=== PATIENT | female | born 1940 | race Hispanic/Latino ===

== ENCOUNTER → 2018-05-18 | Outpatient (CLI) | payer OTHER ==
[~2018-05-18] MED LIST: AEC81 PO; ATOR40TA71 PO; CLOP75TA14 PO; CYAN10009 PO; CYAN100099 PO; LOSA50TA2 PO; LOSA50TA25 PO; METF-444 PO; METF-446 PO; METO25TA6 PO; METO50 PO; METO50TA18 PO; RANO500T2 PO; RANO500T3 PO; SOLI10TA PO
== END | disposition home or self-care (01) ==
LOC: SHCH 13:34
PROVIDERS: ATTEND Internal Medicine Cardiovascular Disease
DX: I25.10 Atherosclerotic heart disease of native coronary artery without angina pectoris (principal)
CPT/HCPCS: 93306

== ENCOUNTER → 2018-05-31 | Outpatient (CLI) | payer OTHER ==
[~2018-05-31] VITALS: Ht 152.4 cm; Wt 63.5 kg
[~2018-05-31] MED LIST changes: +REGADENOSON 0.4 MG/5 ML PF SYG IVP SCH
== END | disposition home or self-care (01) ==
LOC: SHCH 09:40
PROVIDERS: ATTEND Internal Medicine Cardiovascular Disease
DX: I25.10 Atherosclerotic heart disease of native coronary artery without angina pectoris (principal); I10 Essential (primary) hypertension
CPT/HCPCS: 78452; 93017; 96374; A9500 ×2; J2785

== ENCOUNTER → 2018-07-09 | Outpatient (CLI) | payer OTHER ==
[~2018-07-09] VITALS: Ht 152.4 cm; Wt 64.7 kg
[~2018-07-09] MED LIST changes: +CYAN200018 PO; +LEVE750T10 PO; -LOSA50TA25 PO; +LOSA50TA64 PO; -REGADENOSON 0.4 MG/5 ML PF SYG IVP SCH; +ROSU20TA30 PO; +SODIUM CHLORIDE 0.9% 500ML 500 ML IV SCH
[2018-07-09 08:55] VITALS: BP 180/80
[2018-07-09 09:26] LABS: EOSINOPHILS % (AUTO) 2.6 % (0.0-8.0); LYMPHOCYTES % (AUTO) 29.2 % (21.0-51.0); MEAN CORPUSCULAR HEMOGLOBIN 30.1 pg (27.0-33.0); MEAN CORPUSCULAR HGB CONC 31.8 g/dL (32.0-36.0); MEAN CORPUSCULAR VOLUME 94.8 fL (79-99); NEUTROPHILS % (AUTO) 55.2 % (40.0-77.0); NUCLEATED RED BLOOD CELLS 0.1 % (0.0-0.19); PLATELET COUNT (AUTO) 124 K/uL (130-400); RED BLOOD CELL COUNT(AUTO) 3.59 MIL/uL (4.00-5.50); RED CELL DISTRIBUTION WIDTH 15.3 % (11.0-15.5); WHITE BLOOD COUNT (AUTO) 3.9 K/uL (4.8-10.8)
[2018-07-09 09:29] LABS: APPEARANCE,URINE Clear (CLEAR); BILIRUBIN,URINE Negative (NEGATIVE); COLOR,URINE Yellow (YELLOW); GLUCOSE, URINE (UA) Negative (NEGATIVE); KETONES,URINE Negative (NEGATIVE); LEUKOCYTE ESTERASE ,URINE Trace (NEGATIVE); NITRATE,URINE Negative (NEGATIVE); OCCULT BLOOD,URINE Negative (NEGATIVE); PROTEIN,URINE POS 1+ (NEGATIVE)
[2018-07-09 09:40] LABS: BACTERIA,URINE None Seen /HPF (None Seen); RBC,URINE None Seen /HPF (0-1); SQUAMOUS EPITHELIAL CELL,UR None Seen /HPF (0-2); WBC,URINE 0-1 /HPF (0-1)
[2018-07-09 09:42] LABS: INR 0.97 (0.85-1.15); PARTIAL THROMBOPLASTIN TIME 25.5 SEC (26.3-35.5); PROTHROMBIN TIME 10.2 SEC (9.6-11.6)
[2018-07-09 09:46] LABS: CREATININE 1.1 mg/dL (0.5-1.5); POTASSIUM 4.1 mmol/L (3.5-5.1)
--- NOTE | 2018-07-12 12:56 | NUR ---
LABS reported abnormal UA collected 07/09/18 and H&H drawn 07/09/18 to Hamida CAMPBELL, no new orders Addendum: 07/12/18 at 1359 by CRISTO HARRIS RN RN platelets drawn 07/09/18 reported to Hamida CAMPBELL, no new order
--- NOTE | 2018-07-13 07:46 | NUR ---
Called RAMONE Caicedo in regard to pt having fall on Thursday and having bruises on left eye, right eyes and facial area and right knee. Per Francis Trinidad we need to have patient cancelled and to be seen by primary doctor as soon as possible. Discussed the importance with the patient and family member to see primary doctor craig. no other concerns at this moment, pt stable, able to talk and OAx3.
== END ==
LOC: EDSTATUS 08:00 → DAH 10:00
PROVIDERS: ATTEND Internal Medicine Cardiovascular Disease
DX: Z01.818 Encounter for other preprocedural examination (principal); I25.119 Atherosclerotic heart disease of native coronary artery with unspecified angina pectoris; Z79.01 Long term (current) use of anticoagulants
CPT/HCPCS: 36415; 71045; 80048; 81001; 82948; 85025; 85610; 85730; 93005

== ENCOUNTER → 2018-07-21 | Outpatient (CLI) | payer OTHER ==
[~2018-07-21] MED LIST changes: -ATOR40TA71 PO; -CYAN10009 PO; -CYAN100099 PO; -LOSA50TA2 PO; -METF-446 PO; -METO50 PO; -METO50TA18 PO; -RANO500T2 PO; -SODIUM CHLORIDE 0.9% 500ML 500 ML IV SCH
== END | disposition home or self-care (01) ==
LOC: RAH 13:49
PROVIDERS: ATTEND Family Medicine
DX: G31.9 Degenerative disease of nervous system, unspecified (principal); Z91.81 History of falling
CPT/HCPCS: 70450

== ENCOUNTER 2018-10-24 22:45 | Observation (INO) | payer OTHER ==
[~2018-10-24] VITALS: Ht 152.4 cm; Wt 62.1 kg
[2018-10-24 23:03] LABS: BASOPHILS % (AUTO) 0.6 % (0.0-5.0); HEMATOCRIT 35.1 % (36-48); LYMPHOCYTES % (AUTO) 33.6 % (21.0-51.0); MEAN CORPUSCULAR HGB CONC 33.2 g/dL (32.0-36.0); MEAN CORPUSCULAR VOLUME 93.5 fL (79-99); MONOCYTES % (AUTO) 11.9 % (3.0-13.0); NEUTROPHILS % (AUTO) 51.9 % (40.0-77.0); NUCLEATED RED BLOOD CELLS 0.1 % (0.0-0.19); PLATELET COUNT (AUTO) 124 K/uL (130-400); RED BLOOD CELL COUNT(AUTO) 3.76 MIL/uL (4.00-5.50); WHITE BLOOD COUNT (AUTO) 3.7 K/uL (4.8-10.8)
[2018-10-24 23:14] LABS: CREATININE 1.5 mg/dL (0.5-1.5); POTASSIUM 5.2 mmol/L (3.5-5.1)
[2018-10-24 23:19] LABS: ALBUMIN 3.6 g/dL (3.5-5.0); BILIRUBIN,TOTAL 0.4 mg/dL (0.2-1.0)
[2018-10-25] MEDS ORDERED: LIDOCAINE 2%-EPI 1:200,000 20 ML VIAL IJ ONE (04:09)
[2018-10-25] MEDS ORDERED: ACETAMINOPHEN 325 MG TAB PO PRN ×2 (05:30)
[2018-10-25] MEDS ORDERED: HYDRALAZINE HCL 20 MG/ML VIAL IV PRN (05:30)
[2018-10-25] MEDS ORDERED: NITROGLYCERIN 1GM/1 INCH PACKET TD SCH (05:30)
[2018-10-25] MEDS ORDERED: ONDANSETRON HCL 4 MG/2 ML VIAL IV PRN (05:30)
[2018-10-25] MEDS ORDERED: MORPHINE SULFATE 2 MG/ML 1ML SYG IV PRN (05:30)
[2018-10-25 06:09] VITALS: BP 154/83
[2018-10-25] MEDS ORDERED: METF-446 PO (06:30)
[2018-10-25] MEDS ORDERED: METF-444 PO (06:30)
[2018-10-25] MEDS ORDERED: CYAN100010 PO (06:30)
[2018-10-25 07:49] VITALS: BP 119/61
--- NOTE | 2018-10-25 08:00 | NUR ---
ASSESSMENT PT IS AAOX3 DENIES CP DENIES SOB DENIES NV NO COMPLAINTS RESTING IN BED. AM MEDS GIVEN, TOLERATED WELL. CALL LIGHT WITHIN REACH. NOTED RIGHT KNEE BANDAID IN PLACE FROM ASPIRATION DONE IN ER 4-21. NO COMPLAINTS.
[2018-10-25] MEDS: FAMOTIDINE/PF 20 MG/2 ML VIAL IV SCH ×2 (08:01→20:45)
[2018-10-25] MEDS: ENOXAPARIN SODIUM 30 MG/0.3 ML SQ SCH ×2 (08:02→20:50)
[2018-10-25] MEDS ORDERED: ASPIRIN 325 MG TABLET PO SCH (09:00)
[2018-10-25] MEDS ORDERED: METOPROLOL TARTRATE 25 MG TAB PO SCH (09:00)
[2018-10-25 09:43] LABS: CREATINE KINASE, TOTAL 97 U/L (21-232); MYOGLOBIN 56 ng/mL (10-92)
--- NOTE | 2018-10-25 09:45 | NUR ---
DR RECINOS ROUNDED SAW PATIENT. ORDERS RECEIVED.
[2018-10-25 11:26] VITALS: BP 105/54
[2018-10-25] MEDS: INSULIN HUMULIN R 100 UNIT/ML 3ML SQ SCH ×3 (11:30→20:48)
[2018-10-25 12:10] LABS: APPEARANCE BODY FLUID BLOODY (CLEAR); SPECIMENTYPE,BODY FLUID SYNOVIAL
[2018-10-25 12:11] LABS: COLOR,BODY FLUID RED (LT YELLOW); TOTAL VOLUME,BODY FLUID 40 mL
[2018-10-25] MEDS: METOPROLOL TARTRATE 25 MG TAB PO SCH ×2 (12:22→20:50)
--- NOTE | 2018-10-25 12:22 | NUR ---
DBP 54 HELD METOPROLOL AFTERNOON DOSE
[2018-10-25] MEDS: ATORVASTATIN CALCIUM 40 MG TABLET PO SCH (12:24)
[2018-10-25 12:41] LABS: BODY FLUID WBC 500 /cu. mm.
[2018-10-25 12:43] LABS: BODY FLUID RBC 2600000 /cu. mm.
[2018-10-25 12:50] LABS: BF EOSINOPHIL 1 %; BF LYMPHOCYTE 15 %
[2018-10-25 13:22] LABS: TROPONIN I 0.14 ng/mL (0.00-0.06)
[2018-10-25 15:24] VITALS: BP 115/56
--- NOTE | 2018-10-25 15:52 | NUR ---
DC PLAN VISITED WITH PATIENT. PATIENT LIVES WITH DAUGHTER. INDEPENDENT ABLE TO PERFORM ADL'S. PATIENT HAS NO SERVICES OR DME'S. FEELS SAFE TO RETURN HOME. Addendum: 10/25/18 at 1553 by STACY JEREZ RN CM Amended: Links added.
--- NOTE | 2018-10-25 16:32 | NUR ---
DR LAVERNE VILLALPANDO ORDERED PT EVAL AND TREAT FOR PATIENT.
[2018-10-25 19:43] VITALS: BP 99/51
[2018-10-25 20:45] VITALS: BP 108/54
[2018-10-25] MEDS: LEVETIRACETAM 500 MG TABLET PO SCH (20:46)
[2018-10-25] MEDS: RANOLAZINE 500 MG TAB.SR.12H PO SCH (20:46)
[2018-10-25] MEDS ORDERED: ASPIRIN 81 MG EC TAB PO SCH (21:00)
[2018-10-25] MEDS ORDERED: ATORVASTATIN CALCIUM 40 MG TABLET PO SCH (21:00)
[2018-10-26 00:33] VITALS: BP 106/47
[2018-10-26 04:35] VITALS: BP 100/44
[2018-10-26] MEDS: INSULIN HUMULIN R 100 UNIT/ML 3ML SQ SCH (06:10)
[2018-10-26 07:59] VITALS: BP 106/44
--- NOTE | 2018-10-26 08:00 | NUR ---
ASSESSMENT PT IS AAOX4 DENIES CP DENIES SOB DENIES NV NO COMPLAINTS SITTING UPRIGHT IN BED, EATING BREAKFAST. CALL LIGHT WITHIN REACH.
[2018-10-26] MEDS: ATORVASTATIN CALCIUM 40 MG TABLET PO SCH (08:02)
[2018-10-26] MEDS: LEVETIRACETAM 500 MG TABLET PO SCH (08:02)
[2018-10-26] MEDS: METOPROLOL TARTRATE 25 MG TAB PO SCH (08:03)
[2018-10-26] MEDS: RANOLAZINE 500 MG TAB.SR.12H PO SCH (08:03)
[2018-10-26] MEDS: ENOXAPARIN SODIUM 30 MG/0.3 ML SQ SCH (08:03)
[2018-10-26] MEDS: FAMOTIDINE/PF 20 MG/2 ML VIAL IV SCH (08:03)
[2018-10-26] MEDS ORDERED: CYANOCOBALAMIN (VITAMIN B-12) 1,000 MCG TABLET PO SCH (09:00)
[2018-10-26] MEDS ORDERED: LOSARTAN 50 MG TABLET PO SCH (09:00)
[2018-10-26] MEDS ORDERED: CLOPIDOGREL BISULFATE 75 MG TAB PO SCH (09:00)
[2018-10-26] MEDS ORDERED: **HM** VESICARE 10MG PO SCH (09:00)
[2018-10-26 11:10] VITALS: BP 92/47
--- NOTE | 2018-10-26 13:01 | NUR ---
DISCHARGE INSTRUCTIONS GIVEN TO PATIENT. AGREE TO GO TO HEART CLINIC TO DROP OFF EVENT MONITOR ORDERS. AGREE TO TAKE MEDS ORDERED AND FOLLOW UP WITH DR GOETZ OUTPT. PIV REMOVED CATH TIP INTACT, TELE PACK REMOVED. AWAITING RIDE.
--- NOTE | 2018-10-26 13:31 | NUR ---
DOWN VIA WC TO VEHICLE WITH NURSE AIDE. ALL BELONGINGS TAKEN.
== END 2018-10-26 13:00 | disposition home or self-care (01) ==
LOC: EDH 22:45 → EDHIP 10-25 05:00 → INTOOBSV 10-25 05:00 → 2AH 10-25 05:41
PROVIDERS: ADMIT Hospitalist; ATTEND Hospitalist
DX: M85.861 Other specified disorders of bone density and structure, right lower leg (principal); M25.461 Effusion, right knee; R74.8 Abnormal levels of other serum enzymes; I12.9 Hypertensive chronic kidney disease with stage 1 through stage 4 chronic kidney disease, or unspecified chronic kidney disease; N18.3 Chronic kidney disease, stage 3 (moderate); E11.22 Type 2 diabetes mellitus with diabetic chronic kidney disease; E11.21 Type 2 diabetes mellitus with diabetic nephropathy; E11.51 Type 2 diabetes mellitus with diabetic peripheral angiopathy without gangrene; E78.5 Hyperlipidemia, unspecified; I25.10 Atherosclerotic heart disease of native coronary artery without angina pectoris; I25.5 Ischemic cardiomyopathy; M85.80 Other specified disorders of bone density and structure, unspecified site; Z82.0 Family history of epilepsy and other diseases of the nervous system; Z82.3 Family history of stroke; Z82.49 Family history of ischemic heart disease and other diseases of the circulatory system; Z82.5 Family history of asthma and other chronic lower respiratory diseases; Z83.3 Family history of diabetes mellitus; Z90.710 Acquired absence of both cervix and uterus; Z95.1 Presence of aortocoronary bypass graft; Z95.5 Presence of coronary angioplasty implant and graft
CPT/HCPCS: 20610; 36415 ×2; 71045; 73562; 80053; 82550 ×3; 82948 ×4; 83874 ×2; 84484 ×4; 85025; 85651; 86140; 87071; 87205; 89051; 89060; 93005 ×2; 96372; 96374; 96376 ×2; 97039; 97116 ×2; 97161; 99284; G0378 ×32; G8978; G8979; G8980; G8981; G8982; G8983; J1650 ×2; J3490 ×4

== ENCOUNTER 2019-03-08 08:19 | Observation (INO) | payer OTHER ==
[2019-03-04 10:30] VITALS: BP 156/85
[2019-03-04 10:47] LABS: BASOPHILS % (AUTO) 0.6 % (0.0-5.0); EOSINOPHILS % (AUTO) 1.6 % (0.0-8.0); LYMPHOCYTES % (AUTO) 26.4 % (21.0-51.0); MEAN CORPUSCULAR HEMOGLOBIN 30.8 pg (27.0-33.0); MEAN CORPUSCULAR HGB CONC 33.3 g/dL (32.0-36.0); MEAN CORPUSCULAR VOLUME 92.6 fL (79-99); MONOCYTES % (AUTO) 11.1 % (3.0-13.0); NEUTROPHILS % (AUTO) 60.3 % (40.0-77.0); NUCLEATED RED BLOOD CELLS 0.1 % (0.0-0.19); PLATELET COUNT (AUTO) 128 K/uL (130-400); RED BLOOD CELL COUNT(AUTO) 3.46 MIL/uL (4.00-5.50); RED CELL DISTRIBUTION WIDTH 15.9 % (11.0-15.5); WHITE BLOOD COUNT (AUTO) 3.6 K/uL (4.8-10.8)
[2019-03-04 10:57] LABS: CREATININE 1.3 mg/dL (0.5-1.5); POTASSIUM 4.4 mmol/L (3.5-5.1)
[2019-03-04 11:01] LABS: INR 0.99 (0.85-1.15); PARTIAL THROMBOPLASTIN TIME 25.3 SEC (26.3-35.5); PROTHROMBIN TIME 10.4 SEC (9.6-11.6)
--- NOTE | 2019-03-04 15:31 | NUR ---
LABS ABNORMAL BUN/CREA, H&H, PLT REPORTED TO KARLOS PACK, MESSAGE LEFT ON HIS PHONE, AWAITING FOR FURTHER ORDERS
--- NOTE | 2019-03-04 15:37 | NUR ---
LABS RECEIVED CALLED BACK REGARDING ABNORMAL LABS, NO FURTHER ORDERS GIVEN.
[2019-03-08] VITALS (12 sets, daily range): BP systolic 124–169; BP diastolic 43–86
[~2019-03-08] VITALS: Ht 151.1 cm; Wt 60.8 kg
[~2019-03-08 08:19] MED LIST changes: -CYAN200018 PO; -ROSU20TA30 PO; +ROSU20TA31 PO; +SODIUM CHLORIDE 0.9% 1000ML 1,000 ML IV SCH; +VITAMIN B12 PO
[2019-03-08] MEDS ORDERED: MEPERIDINE-PF 25 MG/ML SYG ONE ×2 (11:34→12:10)
[2019-03-08] MEDS ORDERED: BUPIVACAINE/PF 0.25% 30ML VIAL IJ ONE (11:34)
[2019-03-08] MEDS ORDERED: LIDOCAINE HCL 1% MDV 50ML VIAL ONE (11:34)
[2019-03-08] MEDS ORDERED: CEFAZOLIN SODIUM 1 GM VIAL ONE (11:34)
[2019-03-08] MEDS ORDERED: MIDAZOLAM HCL 1 MG/ML 2ML VIAL ONE ×2 (11:34→12:10)
[2019-03-08] MEDS ORDERED: METOPROLOL TARTRATE 1 MG/ML 5ML VIAL IV ONE ×2 (12:58→13:04)
[2019-03-08] MEDS ORDERED: OCTYL 2-CYANOACRYLATE 1 EACH TP ONE (13:04)
[2019-03-08] MEDS ORDERED: ACETAMINOPHEN 325 MG TAB PO PRN (13:15)
[2019-03-08] MEDS ORDERED: DEXTROSE 50%-WATER 50 ML DISP.SYRIN IV PRN (13:15)
[2019-03-08] MEDS ORDERED: GLUCAGON 1MG KIT 1 MG ML IM PRN (13:15)
--- NOTE | 2019-03-08 13:50 | NUR ---
RECEIVED FROM [employer]CH[employer]IC VIA BED ACCOMPANIED BY Lv PAYNE RN. PT. AAOX3, RESP.'S EVEN AND UNLABORED. DENIES ANY C/O SOB, DENIES ANY CURRENT PAIN. LEFT UPPER CHEST WITH PRESSURE DRSG IN PLACE, NO CREPITUS NOTED. LEFT ARM SLING IN PLACE. NOTIFIED PT. AND DAUGHTER AT BEDSIDE RE:STRICT BR PER MD ORDERS, VERBALIZED MUTUAL UNDERSTANDING. COMPLETE ASSESSMENT DONE. CALL LIGHT WITHIN REACH, VERBALIZED ABILITY TO USE. BED LOW, SIDE RAILS UPX3. Addendum: 03/08/19 at 2004 by PEDRO ERAZO RN RN ALSO INSTRUCTED ON LEFT ARM RESTRICTIONS/PRECAUTIONS, VERBALIZED MUTUAL UNDERSTANDING.
--- NOTE | 2019-03-08 14:20 | NUR ---
SITTING UP IN BED EATING LATE LUNCH. CALL LIGHT WITHIN REACH. DAUGHTER AT BEDSIDE.
--- NOTE | 2019-03-08 15:17 | NUR ---
NOTIFIED DR. BARRETO RE:PT. ADMITTED TO HIS SERVICES. NO ORDERS RECEIVED AT THIS TIME.
--- NOTE | 2019-03-08 16:02 | NUR ---
LOLA SR, IN ROOM WITH
[2019-03-08] MEDS ORDERED: ACETAMINOPHEN-CODEINE 300/30MG TAB PO PRN (16:15)
[2019-03-08] MEDS: INSULIN HUMULIN R 100 UNIT/ML 3ML SQ SCH ×2 (16:30→21:00)
[2019-03-08] MEDS: METFORMIN HCL 500 MG TABLET PO SCH (20:59)
[2019-03-08] MEDS: METOPROLOL TARTRATE 50 MG TAB PO SCH (20:59)
[2019-03-08] MEDS: CEFAZOLIN SODIUM 1 GM VIAL IVP SCH (20:59)
[2019-03-08] MEDS: RANOLAZINE 500 MG TAB.SR.12H PO SCH (20:59)
[2019-03-08] MEDS: LEVETIRACETAM 250 MG TABLET PO SCH (20:59)
[2019-03-08] MEDS ORDERED: ASPIRIN 81 MG EC TAB PO SCH (21:00)
[2019-03-09] MEDS: CEFAZOLIN SODIUM 1 GM VIAL IVP SCH (03:25)
[2019-03-09 03:58] VITALS: BP 141/50
[2019-03-09] MEDS: INSULIN HUMULIN R 100 UNIT/ML 3ML SQ SCH (05:36)
[2019-03-09 07:00] VITALS: BP 174/67
[2019-03-09] MEDS ORDERED: LOSARTAN 50 MG TABLET ONE (07:33)
[2019-03-09] MEDS ORDERED: CLOPIDOGREL BISULFATE 75 MG TAB ONE (07:37)
[2019-03-09] MEDS: RANOLAZINE 500 MG TAB.SR.12H PO SCH (07:40)
[2019-03-09] MEDS: LEVETIRACETAM 250 MG TABLET PO SCH (07:40)
[2019-03-09] MEDS: METOPROLOL TARTRATE 50 MG TAB PO SCH (07:40)
[2019-03-09] MEDS: METFORMIN HCL 500 MG TABLET PO SCH (07:40)
--- NOTE | 2019-03-09 08:00 | NUR ---
ASSESSMENT PT IS AAOX3 DENIES CP DENIES SOB DENIES NV NO COMPLAINTS, SITTING UPRIGHT IN BED. BREATHING PATTERN IS EVEN AND UNLABORED. TOLERATED MEAL AND MEDS. LEFT UPPER CHEST PRESSURE DRESSING CLEAN DRY AND INTACT, LEFT ARM SLING IS IN PLACE. CALL LIGHT WITHIN REACH.
[2019-03-09] MEDS ORDERED: LOSARTAN 50 MG TABLET PO SCH (09:00)
[2019-03-09] MEDS ORDERED: CLOPIDOGREL BISULFATE 75 MG TAB PO SCH (09:00)
[2019-03-09] MEDS ORDERED: Rosuvastatin Calcium 20 MG PO SCH (09:00)
[2019-03-09] MEDS ORDERED: METO50 PO (09:48)
--- NOTE | 2019-03-09 10:00 | NUR ---
MD ROUNDS DR BARRETO AND Hamida UNDERWOOD PA-C ROUNDED. DISCHARGE ORDERS RECEIVED.
--- NOTE | 2019-03-09 10:30 | NUR ---
DISCHARGE INSTRUCTIONS GIVEN TO PATIENT, VERBALIZES DC INSTRUCTIONS UNDERSTANDING AGREES TO TAKE MEDS ORDERED, AGREES TO FOLLOW UP WITH MD ORDERED, ALL QUESTIONS ANSWERED, PIV REMOVED CATH TIP INTACT, TELE PACK REMOVED. ALL BELONGINGS GATHERED. AWAITING RIDE.
[2019-03-09] MEDS ORDERED: CYANOCOBALAMIN (VITAMIN B-12) 1,000 MCG TABLET PO SCH (21:00)
== END 2019-03-09 10:50 | disposition still patient (30) ==
LOC: DAH 08:19 → DAHIP 08:20 → 2DH 14:05
PROVIDERS: ADMIT Internal Medicine; ATTEND Internal Medicine
DX: I49.5 Sick sinus syndrome (principal); E11.9 Type 2 diabetes mellitus without complications; E78.5 Hyperlipidemia, unspecified; I10 Essential (primary) hypertension; I25.10 Atherosclerotic heart disease of native coronary artery without angina pectoris; G40.909 Epilepsy, unspecified, not intractable, without status epilepticus; I25.5 Ischemic cardiomyopathy; Z95.1 Presence of aortocoronary bypass graft; Z82.0 Family history of epilepsy and other diseases of the nervous system; Z82.49 Family history of ischemic heart disease and other diseases of the circulatory system; Z83.3 Family history of diabetes mellitus; Z79.899 Other long term (current) drug therapy; Z79.01 Long term (current) use of anticoagulants
CPT/HCPCS: 33208; 36415; 71046; 80048; 82948 ×4; 85025; 85610; 85730; 93005; 96374; 96376; A4215; A4216; A4221; A4222; A4223 ×3; A4606; C1785; C1894; C1898 ×2; G0378 ×23; J0690 ×3; J2175 ×2; J2250 ×2; J3490 ×4; J7030; 99156; 99157

== ENCOUNTER 2019-12-17 10:17 | Emergency (ER) | payer OTHER ==
[~2019-12-17 10:17] MED LIST changes: -METO25TA6 PO; +METO50 PO; -SODIUM CHLORIDE 0.9% 1000ML 1,000 ML IV SCH
[2019-12-17 10:59] LABS: BASOPHILS % (AUTO) 0.7 % (0.0-5.0); EOSINOPHILS % (AUTO) 2.5 % (0.0-8.0); HEMATOCRIT 31.3 % (36-48); LYMPHOCYTES % (AUTO) 26.9 % (21.0-51.0); MEAN CORPUSCULAR HGB CONC 33.2 g/dL (32.0-36.0); MEAN CORPUSCULAR VOLUME 90.2 fL (79-99); MONOCYTES % (AUTO) 15.6 % (3.0-13.0); NEUTROPHILS % (AUTO) 53.8 % (40.0-77.0); PLATELET COUNT (AUTO) 101 K/uL (130-400); RED BLOOD CELL COUNT(AUTO) 3.47 MIL/uL (4.00-5.50); WHITE BLOOD COUNT (AUTO) 4.4 K/uL (4.8-10.8)
[2019-12-17 11:11] LABS: CREATININE 1.2 mg/dL (0.5-1.5); POTASSIUM 4.3 mmol/L (3.5-5.1)
[2019-12-17 11:17] LABS: ALBUMIN 3.4 g/dL (3.5-5.0); BILIRUBIN,TOTAL 0.4 mg/dL (0.2-1.0); TOTAL PROTEIN, SERUM 6.5 g/dL (6.0-8.3)
[2019-12-17 11:49] LABS: INR 0.97 (0.85-1.15); PROTHROMBIN TIME 10.5 SEC (9.6-11.6)
[2019-12-17] MEDS ORDERED: ACETAMINOPHEN 325 MG TAB ONE (11:58)
[2019-12-17] MEDS ORDERED: IOHEXOL 350 MG/ML 100ML INFUS..BTL IV ONE (13:12)
== END 2019-12-17 17:31 | disposition home or self-care (01) ==
LOC: EDH 10:17
DX: T80.818A Extravasation of other vesicant agent, initial encounter (principal); R09.1 Pleurisy; I25.10 Atherosclerotic heart disease of native coronary artery without angina pectoris; E78.5 Hyperlipidemia, unspecified; I10 Essential (primary) hypertension; E11.9 Type 2 diabetes mellitus without complications; Z95.0 Presence of cardiac pacemaker; Y83.8 Other surgical procedures as the cause of abnormal reaction of the patient, or of later complication, without mention of misadventure at the time of the procedure; Y92.89 Other specified places as the place of occurrence of the external cause
CPT/HCPCS: 36415; 71045; 71275; 80053; 82550; 84484 ×2; 85025; 85378; 85610; 85730; 93005 ×2; 93925; 93970; 99284; Q9967

== ENCOUNTER → 2020-03-15 | Outpatient (CLI) | payer OTHER | END | disposition home or self-care (01) | LOC: SHCH 13:27 | PROVIDERS: ATTEND Internal Medicine Cardiovascular Disease | DX: I65.23 Occlusion and stenosis of bilateral carotid arteries (principal); R01.1 Cardiac murmur, unspecified | CPT/HCPCS: 93306; 93880 ==

== ENCOUNTER → 2021-02-21 | Outpatient (CLI) | payer MEDICARE | END | disposition home or self-care (01) | LOC: SHCH 10:00 | PROVIDERS: ATTEND Internal Medicine Cardiovascular Disease | DX: I65.23 Occlusion and stenosis of bilateral carotid arteries (principal); I25.10 Atherosclerotic heart disease of native coronary artery without angina pectoris; I10 Essential (primary) hypertension | CPT/HCPCS: 93880 ==

== ENCOUNTER 2021-06-04 07:39 | Observation (INO) | payer MEDICARE ==
[~2021-06-04] VITALS: Ht 152.4 cm; Wt 63.5 kg
[2021-06-04] MEDS ORDERED: LABETALOL 20MG SYG IV ONE (08:30)
[2021-06-04] MEDS ORDERED: ASPIRIN 325MG TAB PO ONE (08:30)
[2021-06-04 08:41] LABS: BASOPHILS % (AUTO) 0.6 % (0.0-5.0); EOSINOPHILS % (AUTO) 2.3 % (0.0-8.0); HEMATOCRIT 33.4 % (36-48); LYMPHOCYTES % (AUTO) 27.6 % (21.0-51.0); MEAN CORPUSCULAR HEMOGLOBIN 31.5 pg (27.0-33.0); MEAN CORPUSCULAR HGB CONC 33.5 g/dL (32.0-36.0); MEAN CORPUSCULAR VOLUME 93.8 fL (79-99); MONOCYTES % (AUTO) 14.1 % (3.0-13.0); PLATELET COUNT (AUTO) 126 K/uL (130-400); RED BLOOD CELL COUNT(AUTO) 3.56 MIL/uL (4.00-5.50); RED CELL DISTRIBUTION WIDTH 13.2 % (11.0-15.5); WHITE BLOOD COUNT (AUTO) 5.2 K/uL (4.8-10.8)
[2021-06-04 08:48] LABS: CREATININE 1.5 mg/dL (0.5-1.5); POTASSIUM 4.5 mmol/L (3.5-5.1)
[2021-06-04 08:50] LABS: INR 0.98 (0.85-1.15); PROTHROMBIN TIME 10.7 SEC (9.6-11.6)
[2021-06-04 08:51] LABS: PARTIAL THROMBOPLASTIN TIME 25.6 SEC (26.3-35.5)
[2021-06-04 08:57] LABS: ALBUMIN 3.5 g/dL (3.5-5.0); BILIRUBIN,TOTAL 0.5 mg/dL (0.2-1.0); MAGNESIUM 1.9 mg/dL (1.80-2.40)
[2021-06-04 09:04] LABS: B-TYPE NATRIURETIC PEPTIDE 197 pg/mL (0-100)
[2021-06-04 10:06] LABS: APPEARANCE,URINE Clear (CLEAR); BILIRUBIN,URINE Negative (NEGATIVE); COLOR,URINE Yellow (YELLOW); GLUCOSE, URINE (UA) Negative (NEGATIVE); KETONES,URINE Negative (NEGATIVE); LEUKOCYTE ESTERASE ,URINE Negative (NEGATIVE); NITRATE,URINE Negative (NEGATIVE); OCCULT BLOOD,URINE Negative (NEGATIVE); PROTEIN,URINE Trace mg/dL (NEGATIVE); UROBILINOGEN,URINE 0.2 mg/dL (0.2-1.0)
[2021-06-04 10:14] LABS: BACTERIA,URINE Rare /HPF (None Seen); RBC,URINE 0-1 /HPF (0-1); SQUAMOUS EPITHELIAL CELL,UR Few /HPF (0-2); WBC,URINE 0-1 /HPF (0-1)
[2021-06-04] MEDS ORDERED: CLONIDINE HCL 0.1 MG TABLET PO PRN (14:30)
[2021-06-04] MEDS ORDERED: HYDRALAZINE 20MG/ML VIAL IV PRN (14:30)
[2021-06-04] MEDS ORDERED: TEMAZEPAM 15 MG CAPSULE PO PRN (14:30)
[2021-06-04] MEDS ORDERED: ACETAMINOPHEN 325 MG TAB PO PRN (14:30)
[2021-06-04] MEDS ORDERED: MORPHINE 2 MG SYG IVP PRN (14:30)
[2021-06-04] MEDS ORDERED: ONDANSETRON 4MG INJ IVP PRN (14:30)
[2021-06-04] MEDS ORDERED: ACETAMINOPHEN 650 MG SUPPOSITORY RC PRN (14:30)
[2021-06-04] MEDS: INSULIN HUMULIN R 100 UNIT/ML 3ML SQ SCH ×2 (16:30→21:00)
[2021-06-04] MEDS: LEVETIRACETAM 250 MG TABLET PO SCH (21:00)
[2021-06-04] MEDS: RANOLAZINE 500 MG TAB.SR.12H PO SCH (21:27)
[2021-06-04] MEDS: METOPROLOL TARTRATE 50 MG TAB PO SCH (21:27)
[2021-06-04] MEDS: CYANOCOBALAMIN (VITAMIN B-12) 1,000 MCG TABLET PO SCH (21:27)
[2021-06-04] MEDS: ASPIRIN 81 MG EC TAB PO SCH (21:27)
[2021-06-05] VITALS (7 sets, daily range): BP systolic 119–203; BP diastolic 40–76
[2021-06-05 06:01] LABS: BASOPHILS % (AUTO) 0.4 % (0.0-5.0); EOSINOPHILS % (AUTO) 1.5 % (0.0-8.0); HEMATOCRIT 28.3 % (36-48); LYMPHOCYTES % (AUTO) 29.6 % (21.0-51.0); MEAN CORPUSCULAR HEMOGLOBIN 31.5 pg (27.0-33.0); MEAN CORPUSCULAR HGB CONC 33.6 g/dL (32.0-36.0); MEAN CORPUSCULAR VOLUME 93.7 fL (79-99); MONOCYTES % (AUTO) 18.6 % (3.0-13.0); NEUTROPHILS % (AUTO) 49.5 % (40.0-77.0); PLATELET COUNT (AUTO) 117 K/uL (130-400); RED BLOOD CELL COUNT(AUTO) 3.02 MIL/uL (4.00-5.50); RED CELL DISTRIBUTION WIDTH 13.5 % (11.0-15.5); WHITE BLOOD COUNT (AUTO) 4.7 K/uL (4.8-10.8)
[2021-06-05 06:24] LABS: CREATININE 1.2 mg/dL (0.5-1.5); POTASSIUM 4.3 mmol/L (3.5-5.1); THYROID STIMULATING HORMONE 1.84 uIU/mL (0.36-3.74)
[2021-06-05] MEDS: INSULIN HUMULIN R 100 UNIT/ML 3ML SQ SCH ×4 (07:30→21:00)
[2021-06-05] MEDS ORDERED: LOSARTAN 50 MG TABLET PO SCH ×3 (09:00→21:00)
[2021-06-05] MEDS: SOLIFENACIN SUCCINATE 10 MG PO SCH (09:00)
[2021-06-05] MEDS: ATORVASTATIN 40 MG TABLET PO SCH (09:54)
[2021-06-05] MEDS: LEVETIRACETAM 250 MG TABLET PO SCH ×2 (09:54→21:36)
[2021-06-05] MEDS: METOPROLOL TARTRATE 50 MG TAB PO SCH (09:54)
[2021-06-05] MEDS: RANOLAZINE 500 MG TAB.SR.12H PO SCH ×2 (09:54→21:36)
[2021-06-05] MEDS: CLOPIDOGREL 75MG TAB PO SCH (09:55)
[2021-06-05] MEDS: ENOXAPARIN SODIUM 30 MG/0.3 ML SQ SCH (09:55)
[2021-06-05] MEDS ORDERED: ISOSORBIDE MONO 60MG SR TAB PO SCH (11:45)
[2021-06-05] MEDS: CYANOCOBALAMIN (VITAMIN B-12) 1,000 MCG TABLET PO SCH (21:36)
[2021-06-05] MEDS: ASPIRIN 81 MG EC TAB PO SCH (21:37)
[2021-06-05] MEDS: CARVEDILOL 25 MG TABLET PO SCH (21:37)
[2021-06-06] VITALS (7 sets, daily range): BP systolic 113–187; BP diastolic 34–53
[2021-06-06] MEDS: INSULIN HUMULIN R 100 UNIT/ML 3ML SQ SCH ×4 (07:01→21:00)
[2021-06-06 08:30] LABS: CREATININE 1.6 mg/dL (0.5-1.5); POTASSIUM 4.2 mmol/L (3.5-5.1)
[2021-06-06] MEDS: CARVEDILOL 25 MG TABLET PO SCH ×2 (08:30→21:59)
[2021-06-06] MEDS: RANOLAZINE 500 MG TAB.SR.12H PO SCH ×2 (08:30→21:59)
[2021-06-06 08:43] LABS: HEMATOCRIT 26.6 % (36-48); MEAN CORPUSCULAR HEMOGLOBIN 31.9 pg (27.0-33.0); MEAN CORPUSCULAR HGB CONC 33.5 g/dL (32.0-36.0); MEAN CORPUSCULAR VOLUME 95.3 fL (79-99); RED BLOOD CELL COUNT(AUTO) 2.79 MIL/uL (4.00-5.50); RED CELL DISTRIBUTION WIDTH 13.5 % (11.0-15.5); WHITE BLOOD COUNT (AUTO) 4.4 K/uL (4.8-10.8)
[2021-06-06] MEDS: LEVETIRACETAM 250 MG TABLET PO SCH ×2 (09:00→21:59)
[2021-06-06] MEDS: LOSARTAN 50 MG TABLET PO SCH (09:00)
[2021-06-06] MEDS: CLOPIDOGREL 75MG TAB PO SCH (09:00)
[2021-06-06] MEDS: ATORVASTATIN 40 MG TABLET PO SCH (09:00)
[2021-06-06] MEDS: ENOXAPARIN SODIUM 30 MG/0.3 ML SQ SCH (09:00)
[2021-06-06] MEDS: ISOSORBIDE MONO 60MG SR TAB PO SCH (09:00)
[2021-06-06] MEDS: SOLIFENACIN SUCCINATE 10 MG PO SCH (09:00)
[2021-06-06] MEDS ORDERED: REGADENOSON 0.4 MG/5 ML PF SYG IVP SCH (12:00)
[2021-06-06] MEDS: ASPIRIN 81 MG EC TAB PO SCH (21:59)
[2021-06-06] MEDS: CYANOCOBALAMIN (VITAMIN B-12) 1,000 MCG TABLET PO SCH (21:59)
[2021-06-07 03:30] VITALS: BP 136/36
[2021-06-07 05:54] LABS: CREATININE 1.4 mg/dL (0.5-1.5); POTASSIUM 4.2 mmol/L (3.5-5.1)
[2021-06-07] MEDS: INSULIN HUMULIN R 100 UNIT/ML 3ML SQ SCH ×2 (06:51→11:30)
[2021-06-07 08:00] VITALS: BP 196/61
[2021-06-07] MEDS: LEVETIRACETAM 250 MG TABLET PO SCH (10:21)
[2021-06-07] MEDS: RANOLAZINE 500 MG TAB.SR.12H PO SCH (10:21)
[2021-06-07] MEDS: ISOSORBIDE MONO 60MG SR TAB PO SCH (10:21)
[2021-06-07] MEDS: ATORVASTATIN 40 MG TABLET PO SCH (10:22)
[2021-06-07] MEDS: CARVEDILOL 25 MG TABLET PO SCH (10:22)
[2021-06-07] MEDS: LOSARTAN 50 MG TABLET PO SCH (10:23)
[2021-06-07] MEDS: CLOPIDOGREL 75MG TAB PO SCH (10:28)
[2021-06-07 10:30] VITALS: BP 160/51
[2021-06-07] MEDS ORDERED: CLON0.1T2 PO (11:26)
[2021-06-07] MEDS ORDERED: Isosorbide Mono 60MG Sr Tab PO (11:26)
[2021-06-07] MEDS ORDERED: LOSA50TA2 PO (11:26)
[2021-06-07] MEDS ORDERED: CARV25TA PO (11:26)
[2021-06-07 11:32] VITALS: BP 155/42
[2021-06-07 16:00] VITALS: BP 104/29
[2021-06-07 17:00] VITALS: BP 116/42
== END 2021-06-07 17:40 | disposition home or self-care (01) ==
LOC: EDH 07:39 → EDHIP 14:26 → 3AH 06-05 09:15
PROVIDERS: ADMIT Internal Medicine; ATTEND Internal Medicine
DX: I16.0 Hypertensive urgency (principal); R07.89 Other chest pain; I65.29 Occlusion and stenosis of unspecified carotid artery; I25.10 Atherosclerotic heart disease of native coronary artery without angina pectoris; E78.00 Pure hypercholesterolemia, unspecified; I13.0 Hypertensive heart and chronic kidney disease with heart failure and stage 1 through stage 4 chronic kidney disease, or unspecified chronic kidney disease; E11.22 Type 2 diabetes mellitus with diabetic chronic kidney disease; I50.9 Heart failure, unspecified; N18.9 Chronic kidney disease, unspecified; E11.51 Type 2 diabetes mellitus with diabetic peripheral angiopathy without gangrene; E78.5 Hyperlipidemia, unspecified; G40.909 Epilepsy, unspecified, not intractable, without status epilepticus; I25.5 Ischemic cardiomyopathy; I70.1 Atherosclerosis of renal artery; M62.82 Rhabdomyolysis; N17.9 Acute kidney failure, unspecified; T46.5X6A Underdosing of other antihypertensive drugs, initial encounter; Z95.1 Presence of aortocoronary bypass graft; Z90.710 Acquired absence of both cervix and uterus; Z79.02 Long term (current) use of antithrombotics/antiplatelets; Z79.899 Other long term (current) drug therapy; Z91.14 Patient's other noncompliance with medication regimen; Z86.16 Personal history of COVID-19; Z95.0 Presence of cardiac pacemaker
CPT/HCPCS: 36415 ×4; 71045; 76770; 78452; 78580; 80048 ×3; 80053; 80061; 81001; 82550 ×4; 82948 ×11; 83735; 83874 ×4; 83880; 84443; 84484 ×5; 85025 ×2; 85027; 85378; 85610; 85730; 87088; 93005 ×3; 93017; 93880; 93970; 93975; 96372; 96374; 99285; A9500 ×2; A9540; G0378 ×73; J0360; J1650 ×2; J2785

== ENCOUNTER → 2021-06-20 | Outpatient (CLI) | payer MEDICARE ==
[~2021-06-20] MED LIST changes: +CARV25TA PO; +CLON0.1T2 PO; +IOHEXOL-350 50ML VIAL IV ONE; +IOHEXOL-350 75 ML VIAL IV ONE; +Isosorbide Mono 60MG Sr Tab PO; +LOSA50TA2 PO; -LOSA50TA64 PO; -METO50 PO
== END | disposition home or self-care (01) ==
LOC: RAH 07:36
PROVIDERS: ATTEND Internal Medicine Cardiovascular Disease
DX: M47.812 Spondylosis without myelopathy or radiculopathy, cervical region (principal); I70.90 Unspecified atherosclerosis; I65.23 Occlusion and stenosis of bilateral carotid arteries
CPT/HCPCS: 70498; Q9967 ×2

== ENCOUNTER 2021-07-08 11:52 | Emergency (ER) | payer MEDICARE ==
[~2021-07-08] VITALS: Ht 152.4 cm; Wt 65.8 kg
[~2021-07-08 11:52] MED LIST changes: -IOHEXOL-350 50ML VIAL IV ONE; -IOHEXOL-350 75 ML VIAL IV ONE
[2021-07-08 12:56] LABS: BASOPHILS % (AUTO) 0.5 % (0.0-5.0); HEMATOCRIT 34.2 % (36-48); LYMPHOCYTES % (AUTO) 18.1 % (21.0-51.0); MEAN CORPUSCULAR HEMOGLOBIN 30.6 pg (27.0-33.0); MEAN CORPUSCULAR HGB CONC 32.5 g/dL (32.0-36.0); MEAN CORPUSCULAR VOLUME 94.2 fL (79-99); NEUTROPHILS % (AUTO) 67.7 % (40.0-77.0); PLATELET COUNT (AUTO) 117 K/uL (130-400); RED BLOOD CELL COUNT(AUTO) 3.63 MIL/uL (4.00-5.50); RED CELL DISTRIBUTION WIDTH 13.9 % (11.0-15.5); WHITE BLOOD COUNT (AUTO) 5.5 K/uL (4.8-10.8)
[2021-07-08 13:03] LABS: APPEARANCE,URINE Cloudy (CLEAR); BILIRUBIN,URINE Negative (NEGATIVE); COLOR,URINE Yellow (YELLOW); GLUCOSE, URINE (UA) Negative (NEGATIVE); KETONES,URINE Negative (NEGATIVE); LEUKOCYTE ESTERASE ,URINE Trace (NEGATIVE); NITRATE,URINE Negative (NEGATIVE); OCCULT BLOOD,URINE Large (NEGATIVE); PH,URINE 5.5 (5.0-8.0); PROTEIN,URINE 300 mg/dL (NEGATIVE)
[2021-07-08 13:04] LABS: CREATININE 1.7 mg/dL (0.5-1.5); POTASSIUM 3.5 mmol/L (3.5-5.1)
[2021-07-08 13:09] LABS: ALBUMIN 3.2 g/dL (3.5-5.0); BILIRUBIN,TOTAL 0.5 mg/dL (0.2-1.0); TOTAL PROTEIN, SERUM 6.5 g/dL (6.0-8.3)
[2021-07-08 13:24] LABS: BACTERIA,URINE Few /HPF (None Seen); RBC,URINE 0-1 /HPF (0-1); SQUAMOUS EPITHELIAL CELL,UR Few /HPF (0-2); WBC,URINE 0-1 /HPF (0-1)
[2021-07-08] MEDS ORDERED: CLONIDINE HCL 0.1 MG TABLET PO SCH (13:30)
[2021-07-08 13:50] VITALS: BP 168/76
[2021-07-08] MEDS ORDERED: CIPR-278 PO (14:03)
[2021-07-08 20:22] LABS: HEPATITIS B CORE IGM ANTIBODY Non-Reactive (Negative); HEPATITIS B SURFACE ANTIGEN Non-Reactive (Negative); HEPATITIS C ANTIBODY Non-Reactive (NEGATIVE)
== END 2021-07-08 14:14 | disposition home or self-care (01) ==
LOC: EDH 11:52
DX: D64.9 Anemia, unspecified (principal); R53.1 Weakness; N28.9 Disorder of kidney and ureter, unspecified; R79.89 Other specified abnormal findings of blood chemistry; Z20.822 Contact with and (suspected) exposure to COVID-19; I10 Essential (primary) hypertension; E11.9 Type 2 diabetes mellitus without complications; E66.9 Obesity, unspecified; Z79.82 Long term (current) use of aspirin; Z79.84 Long term (current) use of oral hypoglycemic drugs; Z79.899 Other long term (current) drug therapy; Z95.810 Presence of automatic (implantable) cardiac defibrillator; Z68.28 Body mass index [BMI] 28.0-28.9, adult
CPT/HCPCS: 36415; 71045; 80053; 80074; 81001; 84484; 85025; 86757; 87635; 87804 ×2; 99284; C9803; 86709

== ENCOUNTER → 2022-06-11 | Outpatient (CLI) | payer MEDICARE ==
[~2022-06-11] MED LIST changes: +CIPR-278 PO; +CLOP-31 PO; -CLOP75TA14 PO
[2022-06-11 12:48] LABS: CHOLESTEROL 206 mg/dL (<200); HDL CHOLESTEROL 83 mg/dL (35-85); LDL DIRECT 98 mg/dL (0-99); TRIGLYCERIDES 71 mg/dL (30-200)
== END | disposition home or self-care (01) ==
LOC: LAB 09:44
PROVIDERS: ATTEND Physician Assistant
DX: I10 Essential (primary) hypertension (principal); I65.21 Occlusion and stenosis of right carotid artery
CPT/HCPCS: 36415; 80061

== ENCOUNTER → 2022-12-19 | Outpatient (CLI) | payer MEDICARE ==
[~2022-12-19] MED LIST changes: +LOSA-418 PO; -LOSA50TA2 PO; -ROSU20TA31 PO; +ROSU20TA73 PO
== END | disposition home or self-care (01) ==
LOC: SHCH 10:11
PROVIDERS: ATTEND Internal Medicine Cardiovascular Disease
DX: I65.23 Occlusion and stenosis of bilateral carotid arteries (principal); Z95.828 Presence of other vascular implants and grafts
CPT/HCPCS: 93880

== ENCOUNTER → 2022-12-24 | Outpatient (CLI) | payer MEDICARE ==
[~2022-12-24] MED LIST changes: +ALBUTEROL 0.083% 2.5 MG/3 ML INH IH ONE
== END | disposition home or self-care (01) ==
LOC: RESP 10:15
PROVIDERS: ATTEND Internal Medicine Cardiovascular Disease
DX: R06.02 Shortness of breath (principal); R06.00 Dyspnea, unspecified
CPT/HCPCS: 94060; 94727; 94729

== ENCOUNTER → 2022-12-30 | Outpatient (CLI) | payer MEDICARE ==
[~2022-12-30] MED LIST changes: -ALBUTEROL 0.083% 2.5 MG/3 ML INH IH ONE; +REGADENOSON 0.4 MG/5 ML PF SYG IVP ONE
== END | disposition home or self-care (01) ==
LOC: SHCH 08:40
PROVIDERS: ATTEND Internal Medicine Cardiovascular Disease
DX: R06.02 Shortness of breath (principal); I25.10 Atherosclerotic heart disease of native coronary artery without angina pectoris; Z95.1 Presence of aortocoronary bypass graft; Z95.0 Presence of cardiac pacemaker; Z79.82 Long term (current) use of aspirin; Z79.899 Other long term (current) drug therapy
CPT/HCPCS: 78452; 96374; 93017; J2785; A9500 ×2

== ENCOUNTER → 2023-01-27 | Outpatient (CLI) | payer MEDICARE ==
[~2023-01-27] MED LIST changes: -REGADENOSON 0.4 MG/5 ML PF SYG IVP ONE
[2023-01-27 22:43] VITALS: PULSE 60; RESP 16
[2023-01-27 23:05] VITALS: PULSE 60; RESP 14
[2023-01-27 23:30] VITALS: PULSE 60; RESP 10
[2023-01-28] VITALS (11 sets, daily range): PULSE 60; RESP 8–12
== END | disposition home or self-care (01) ==
LOC: SLP 20:11
PROVIDERS: ATTEND Internal Medicine Cardiovascular Disease
DX: G47.33 Obstructive sleep apnea (adult) (pediatric) (principal)
CPT/HCPCS: 95810

== ENCOUNTER → 2023-04-24 | Outpatient (CLI) | payer MEDICARE ==
[2023-04-24 22:00] VITALS: PULSE 60; RESP 10
[2023-04-24 22:30] VITALS: PULSE 62; RESP 12
[2023-04-24 22:41] VITALS: PULSE 60; RESP 16
[2023-04-24 23:00] VITALS: PULSE 52; PULSE 60; RESP 10; RESP 14
[2023-04-24 23:30] VITALS: PULSE 60; PULSE 62; RESP 12; RESP 14
[2023-04-25] VITALS (11 sets, daily range): PULSE 48–64; RESP 4–16
== END | disposition home or self-care (01) ==
LOC: SLP 19:58
PROVIDERS: ATTEND Internal Medicine Cardiovascular Disease
DX: G47.33 Obstructive sleep apnea (adult) (pediatric) (principal)
CPT/HCPCS: 95810; 95811

== ENCOUNTER → 2023-05-05 | Outpatient (CLI) | payer MEDICARE | END | disposition home or self-care (01) | LOC: SHCH 09:45 | PROVIDERS: ATTEND Internal Medicine Cardiovascular Disease | DX: I65.23 Occlusion and stenosis of bilateral carotid arteries (principal) | CPT/HCPCS: 93880 ==

== ENCOUNTER → 2023-10-20 | Outpatient (CLI) | payer MEDICARE | END | disposition home or self-care (01) | LOC: SHCH 10:07 | PROVIDERS: ATTEND Internal Medicine Cardiovascular Disease | DX: I65.23 Occlusion and stenosis of bilateral carotid arteries (principal); I25.10 Atherosclerotic heart disease of native coronary artery without angina pectoris; I73.9 Peripheral vascular disease, unspecified; Z79.899 Other long term (current) drug therapy | CPT/HCPCS: 93880; 93925 ==

== ENCOUNTER → 2024-01-20 | Outpatient (CLI) | payer MEDICARE ==
[2024-01-20 12:22] LABS: ALBUMIN 3.3 g/dL (3.5-5.0); BILIRUBIN,TOTAL 0.7 mg/dL (0.2-1.0); CREATININE 2.3 mg/dL (0.5-1.0); TOTAL PROTEIN, SERUM 6.2 g/dL (6.0-8.3)
== END | disposition home or self-care (01) ==
LOC: LAB 10:53
PROVIDERS: ATTEND Internal Medicine Cardiovascular Disease
DX: E78.5 Hyperlipidemia, unspecified (principal)
CPT/HCPCS: 36415; 80053; 80061